=== PATIENT | male | born 1985 | race Asian ===

== ENCOUNTER 2022-07-05 01:37 | Emergency (ER) | payer BC, OTHER ==
[~2022-07-05] VITALS: Ht 162.6 cm; Wt 59.3 kg
[2022-07-05] MEDS ORDERED: KETOROLAC 30MG/ML VIAL IM STA (02:39)
[2022-07-05] MEDS ORDERED: BALANCED SALT IRRIG SOLN 15ML IR ONE (02:45)
[2022-07-05] MEDS ORDERED: FLUORESCEIN SODIUM 1MG/STRIP LEFTEYE ONE (02:45)
[2022-07-05] MEDS ORDERED: TETRACAINE 0.5% OPHTH DROPS 4ML LEFTEYE ONE (02:45)
[2022-07-05] MEDS ORDERED: METOCLOPRAMIDE HCL 10MG TABLET PO ONE (02:45)
[2022-07-05 03:33] LABS: BASOPHILS % 0.6 % (0.0-2.0); EOSINOPHILS % 3.1 % (0.0-5.0); HEMATOCRIT. 45.4 % (42.0-52.0); HEMOGLOBIN. 15.4 g/dL (14.0-18.0); LYMPHOCYTES % 24.5 % (20.0-50.0); MEAN CORPUSCULAR HEMOGLOBIN 30.1 pg (28.0-32.0); MEAN CORPUSCULAR VOLUME 88.8 fL (80.0-94.0); MEAN PLATELET VOLUME 6.9 fl (7.4-10.4); MONOCYTES % 7.8 % (2.0-8.0); PLATELET 267 x1000/uL (130-400); RED BLOOD CELL COUNT 5.11 mill/uL (4.7-6.1); RED CELL DISTRIBUTION WIDTH 13.6 % (11.6-14.6)
[2022-07-05 03:37] LABS: CLARITY URINE CLEAR (CLEAR); COLOR URINE YELLOW (YELLOW); KETONES URINE NEGATIVE (NEGATIVE); LEUKOCYTE ESTERASE URINE NEGATIVE (NEGATIVE); NITRITE URINE NEGATIVE (NEGATIVE); OCCULT BLOOD URINE NEGATIVE (NEGATIVE); PROTEIN URINE NEGATIVE (NEGATIVE); SPECIFIC GRAVITY URINE 1.026 (1.005-1.030); UROBILINOGEN URINE 0.2 E.U./dL (0.2-1.0)
[2022-07-05 03:42] LABS: CHLORIDE 103 mEq/L (98-107)
[2022-07-05] MEDS ORDERED: NAPR-681 PO (04:31)
[2022-07-05] MEDS ORDERED: VALA100044 PO (04:31)
[2022-07-05] MEDS ORDERED: ONDA4TAB50 PO (04:31)
[2022-07-05] MEDS ORDERED: DOXY100T28 PO (04:31)
[2022-07-05 04:45] VITALS: BP 140/85
== END 2022-07-05 04:50 | disposition home or self-care (01) ==
LOC: ER 01:37
DX: R51.9 Headache, unspecified (principal); L98.8 Other specified disorders of the skin and subcutaneous tissue
CPT/HCPCS: 36415; 80053; 81003; 85025; 96372; 99283; J1885; J8597

== ENCOUNTER → 2022-08-15 | Outpatient (CLI) | payer BC ==
[~2022-08-15] MED LIST: DOXY100T28 PO; NAPR-681 PO; ONDA4TAB50 PO; VALA100044 PO
[2022-08-15 08:07] LABS: BASOPHILS % 0.3 % (0.0-2.0); EOSINOPHILS % 1.1 % (0.0-5.0); HEMATOCRIT. 40.9 % (42.0-52.0); HEMOGLOBIN. 13.6 g/dL (14.0-18.0); LYMPHOCYTES % 16.6 % (20.0-50.0); MEAN CORPUSCULAR HEMOGLOBIN 30.3 pg (28.0-32.0); MEAN CORPUSCULAR VOLUME 90.8 fL (80.0-94.0); MEAN PLATELET VOLUME 7.1 fl (7.4-10.4); MONOCYTES % 6.3 % (2.0-8.0); NEUTROPHILS % 75.7 % (40.0-76.0); PLATELET 287 x1000/uL (130-400); RED CELL DISTRIBUTION WIDTH 14.2 % (11.6-14.6)
[2022-08-15 09:19] LABS: CHLORIDE 106 mEq/L (98-107)
[2022-08-15 09:34] LABS: HDL CHOLESTEROL 63 mg/dL (40-59); LDL CHOLESTEROL 120 mg/dL (5-100); PHOSPHORUS 2.9 mg/dL (2.5-4.9); TOTAL IRON BINDING CAPACITY 337 ug/dL (250-450)
[2022-08-15 11:57] LABS: PROSTRATE SPECIFIC AG TOTAL 1.02 ng/mL (0.0-4.0)
[2022-08-15 12:08] LABS: HEPATITIS B SURFACE ANTIGEN NEGATIVE
== END | disposition home or self-care (01) ==
LOC: LAB 07:12
PROVIDERS: ATTEND Internal Medicine
DX: Z00.00 Encounter for general adult medical examination without abnormal findings (principal); E70.0 Classical phenylketonuria; D60.9 Acquired pure red cell aplasia, unspecified; N39.0 Urinary tract infection, site not specified
CPT/HCPCS: 36415; 80053; 80061; 80069; 83036; 83540; 83550; 84153; 84436; 85025; 86705; 86709; 86803; 87340; G0103